=== PATIENT | male | born 1985 ===

== ENCOUNTER 2019-10-04 17:08 | Emergency (ER) | payer BC ==
[2019-10-04] MEDS ORDERED: cloNIDine 0.1 MG Tab PO ONE (17:41)
--- NOTE | 2019-10-04 17:47 | EDM.PDOC ---
ED HPI GENERAL MEDICAL PROBLEM - General Chief Complaint: General Stated Complaint: BP HIGH Time Seen by Provider: 10/04/19 17:42 Source of Information: Reports: Patient History Limitations: Reports: No Limitations - History of Present Illness INITIAL COMMENTS - FREE TEXT/NARRATIVE: Sent from the walk-in clinic due to elevated BP. He initially presented with cough and congestion x 2 weeks. BP was 200/135. Patient admits to a h/o HTN, but is not compliant with BP meds. He admits to drinking 750 ml whiskey per day and smokes cigarettes, but denies illicit drug use. Patient denies headache, chest pain or SOB. - Related Data Allergies Allergy/AdvReac Type Severity Reaction Status Date / Time No Known Allergies Allergy Verified 10/04/19 17:45 Home Meds: Home Meds Doxycycline Hyclate 100 mg PO BID #14 capsule 10/04/19 [Rx] Losartan Potassium [Cozaar] 50 mg PO DAILY #30 tablet 10/04/19 [Rx] Meloxicam [Mobic] 30 mg PO ASDIRECTED PRN 10/04/19 [History] Past Medical History Cardiovascular History: Reports: Hypertension Social & Family History - Tobacco Use Smoking Status *Q: Current Every Day Smoker Tobacco Use Within Last Twelve Months: Cigarettes - Alcohol Use Alcohol Use History: Yes Alcohol Use Frequency: Daily - Recreational Drug Use Recreational Drug Use: No ED ROS GENERAL - Review of Systems Review Of Systems: Comprehensive ROS is negative, except as noted in HPI. ED EXAM, GENERAL - Physical Exam Exam: See Below Exam Limited By: No Limitations General Appearance: Alert, WD/WN, No Apparent Distress Eye Exam: Bilateral Eye: EOMI, PERRL Ear Exam: Bilateral Ear: TM normal Throat/Mouth: Normal Inspection, No Airway Compromise Neck: Normal Inspection, Full Range of Motion Respiratory/Chest: No Respiratory Distress, Lungs Clear, Normal Breath Sounds Cardiovascular: Regular Rate, Rhythm, No Murmur Back Exam: Full Range of Motion Extremities: Normal Range of Motion Neurological: Alert, Oriented, Normal Cognition Psychiatric: Normal Affect, Normal Mood Skin Exam: Warm, Dry, Intact EKG INTERPRETATION EKG Date: 10/04/19 Time: 17:47 Rhythm: NSR Rate (Beats/Min): 96 P-Wave: Present ST-T: Other (LVH with repolarization abnormality) Course - Vital Signs Text/Narrative:: Triage vitals: T97.5, BP 175/139, HR 99, Sa02 99% RA. Last Recorded V/S: Last Vital Signs Temp 36.4 C 10/04/19 17:08 Pulse 99 10/04/19 17:08 Resp 17 10/04/19 17:08 BP 162/123 H 10/04/19 19:06 Pulse Ox 99 10/04/19 17:08 - Orders/Labs/Meds Orders: Active Orders 24 hr Category Date Time Status EKG Documentation Completion [RC] ASDIRECTED Care 10/04/19 17:42 Active CXR [Chest 2V] [CR] Stat Exams 10/04/19 18:00 Taken EKG 12 Lead [EK] Stat Ther 10/04/19 17:41 Ordered Labs: Laboratory Tests 10/04/19 10/04/19 10/04/19 Range/Units 17:53 17:53 17:53 WBC 8.6 (4.5-12.0) X10-3/uL RBC 4.80 (4.30-5.75) x10(6)uL Hgb 15.6 (13.5-17.8) g/dL Hct 44.7 (30.0-51.3) % MCV 93.2 (80-96) fL MCH 32.5 (27.7-33.6) pg MCHC 34.8 (32.2-35.4) g/dL RDW 12.8 (11.5-15.5) % Plt Count 231 (125-369) X10(3)uL MPV 8.0 (7.4-10.4) fL Neut % (Auto) 61.5 (46-82) % Lymph % (Auto) 27.6 (13-37) % Bibb % (Auto) 7.6 (4-12) % Eos % (Auto) 3 (1.0-5.0) % Baso % (Auto) 0 (0-2) % Neut # (Auto) 5.3 (1.6-8.3) # Lymph # (Auto) 2.4 (0.6-5.0) # Bibb # (Auto) 0.7 (0.0-1.3) # Eos # (Auto) 0.2 (0.0-0.8) # Baso # (Auto) 0.0 (0.0-0.2) # Sodium 144 (135-145) mmol/L Potassium 3.9 (3.5-5.3) mmol/L Chloride 103 (100-110) mmol/L Carbon Dioxide 28 (21-32) mmol/L BUN 11 (7-18) mg/dL Creatinine 1.1 (0.70-1.30) mg/dL Est Cr Clr Drug Dosing TNP Estimated GFR (MDRD) > 60 (>60) BUN/Creatinine Ratio 10.0 (9-20) Glucose 100 (80-116) mg/dL Calcium 9.0 (8.6-10.2) mg/dL Magnesium 1.8 (1.8-2.5) mg/dL Total Bilirubin 0.8 (0.1-1.3) mg/dL AST 63 H (5-25) IU/L ALT 102 H (12-36) U/L Alkaline Phosphatase 86 (56-112) IU/L Troponin I (<0.017-0.056) ng/mL Total Protein 8.3 H (6.0-8.0) g/dL Albumin 4.7 (3.5-5.2) g/dL Globulin 3.6 g/dL Albumin/Globulin Ratio 1.3 Ethyl Alcohol < 0.03 (<0.03) % 10/04/19 Range/Units 17:53 WBC (4.5-12.0) X10-3/uL RBC (4.30-5.75) x10(6)uL Hgb (13.5-17.8) g/dL Hct (30.0-51.3) % MCV (80-96) fL MCH (27.7-33.6) pg MCHC (32.2-35.4) g/dL RDW (11.5-15.5) % Plt Count (125-369) X10(3)uL MPV (7.4-10.4) fL Neut % (Auto) (46-82) % Lymph % (Auto) (13-37) % Bibb % (Auto) (4-12) % Eos % (Auto) (1.0-5.0) % Baso % (Auto) (0-2) % Neut # (Auto) (1.6-8.3) # Lymph # (Auto) (0.6-5.0) # Bibb # (Auto) (0.0-1.3) # Eos # (Auto) (0.0-0.8) # Baso # (Auto) (0.0-0.2) # Sodium (135-145) mmol/L Potassium (3.5-5.3) mmol/L Chloride (100-110) mmol/L Carbon Dioxide (21-32) mmol/L BUN (7-18) mg/dL Creatinine (0.70-1.30) mg/dL Est Cr Clr Drug Dosing Estimated GFR (MDRD) (>60) BUN/Creatinine Ratio (9-20) Glucose (80-116) mg/dL Calcium (8.6-10.2) mg/dL Magnesium (1.8-2.5) mg/dL Total Bilirubin (0.1-1.3) mg/dL AST (5-25) IU/L ALT (12-36) U/L Alkaline Phosphatase (56-112) IU/L Troponin I 0.024 (<0.017-0.056) ng/mL Total Protein (6.0-8.0) g/dL Albumin (3.5-5.2) g/dL Globulin g/dL Albumin/Globulin Ratio Ethyl Alcohol (<0.03) % Meds: Medications Discontinued Medications Generic Name Dose Route Start Last Admin Trade Name Freq PRN Reason Stop Dose Admin Clonidine HCl 0.2 mg 10/04/19 17:41 10/04/19 17:48 Catapres PO 10/04/19 17:42 0.2 mg ONETIME ONE Administration Doxycycline Hyclate 100 mg 10/04/19 20:09 Vibra-Tabs PO 10/04/19 20:10 ONETIME ONE Hydralazine HCl 20 mg 10/04/19 18:57 10/04/19 19:06 Apresoline IM 10/04/19 18:58 20 mg .ONCE ONE Administration Losartan Potassium 50 mg 10/04/19 18:56 10/04/19 19:06 Cozaar PO 10/04/19 18:57 50 mg ONETIME ONE Administration Thiamine HCl 100 mg 10/04/19 18:58 10/04/19 19:05 Vitamin B-1 IM 10/04/19 18:59 100 mg .ONCE ONE Administration - Radiology Interpretation Free Text/Narrative:: CXR: No acute process. (ED provider interpretation) - Re-Assessments/Exams Free Text/Narrative Re-Assessment/Exam: 10/04/19 20:12 BP 162/123 after Clonidine 0.2mg PO. BP 179/105 after Hydralazine 20mg IM and Cozaar 50mg PO. Departure - Departure Time of Disposition: 20:13 Disposition: Home, Self-Care 01 Condition: Good Clinical Impression: Hypertension, poor control, Alcohol abuse, Bronchitis - Discharge Information *PRESCRIPTION DRUG MONITORING PROGRAM REVIEWED*: No *COPY OF PRESCRIPTION DRUG MONITORING REPORT IN PATIENT KITTY: Not Applicable Prescriptions: Doxycycline Hyclate 100 mg PO BID #14 capsule Losartan Potassium [Cozaar] 50 mg PO DAILY #30 tablet Instructions: Alcohol Use Disorder, Upper Respiratory Infection, Adult, Easy-to -Read, Hypertension, [id number] Referrals: PCP,None [Primary Care Provider] - Forms: ED Department Discharge Additional Instructions: Fill the prescriptions for Cozaar and Doxycycline and take as directed. Taper alcohol use. Take a multivitamin daily. Establish with a primary physician in 2- 3 days. Return to the ER if symptoms worsen. Sepsis Event Note - Focused Exam Vital Signs: Vital Signs Temp Pulse Resp BP BP Pulse Ox 10/04/19 19:06 162/123 H 10/04/19 18:55 162/123 H 10/04/19 17:48 175/139 H 10/04/19 17:08 36.4 C 99 17 175/139 H 99 Date Exam was Performed: 10/04/19 Time Exam was Performed: 20:11 - My Orders Last 24 Hours: My Active Orders 10/04/19 17:41 EKG 12 Lead [EK] Stat 10/04/19 17:42 EKG Documentation Completion [RC] ASDIRECTED 10/04/19 18:00 CXR [Chest 2V] [CR] Stat - Assessment/Plan Last 24 Hours: My Active Orders 10/04/19 17:41 EKG 12 Lead [EK] Stat 10/04/19 17:42 EKG Documentation Completion [RC] ASDIRECTED 10/04/19 18:00 CXR [Chest 2V] [CR] Stat
[2019-10-04] MEDS ORDERED: Losartan 50 MG Tab PO ONE (18:56)
[2019-10-04] MEDS ORDERED: hydrALAZINE 20 MG/ML SDV IM ONE (18:57)
[2019-10-04] MEDS ORDERED: Thiamine 200 MG/2 ML MDV IM ONE (18:58)
[2019-10-04] MEDS ORDERED: Doxycycline 100 MG Tab PO ONE (20:09)
--- NOTE | 2019-10-05 11:11 | CR ---
INDICATION: Cough. CHEST, 2 VIEWS: PA and lateral views of the chest reveal the heart to be normal in size transversely but with suggestion of mild left ventricular enlargement on the lateral view. This should be correlated clinically. The aorta is tortuous to a moderate degree. Bony structures appear to be intact. No consolidating pneumonia or effusion was identified. However, there is bronchial wall cuffing of a moderate degree at the lung bases , which may be on the basis of active peribronchial disease, and should be correlated clinically. MTDD
== END 2019-10-04 20:30 | disposition home or self-care (01) ==
LOC: FB.ED 17:08
DX: I10 Essential (primary) hypertension (principal); J40 Bronchitis, not specified as acute or chronic; F10.10 Alcohol abuse, uncomplicated; F17.210 Nicotine dependence, cigarettes, uncomplicated; Z79.899 Other long term (current) drug therapy; Z91.14 Patient's other noncompliance with medication regimen
CPT/HCPCS: 36415; 71046; 80053; 83735; 84484; 85025; 93005; 96372; 99284-25; A9270-GY; G0480; J0360; J3411